=== PATIENT | male | born 1985 | race Two or more races ===

== ENCOUNTER 2020-07-25 11:39 | Emergency (ER) | payer OTHER ==
[~2020-07-25] VITALS: Ht 175.3 cm; Wt 90.7 kg
[2020-07-25] MEDS ORDERED: ATIVAN0.5 M1 (11:43)
[2020-07-25] MEDS ORDERED: CLOZARIL100 MG (11:44)
[2020-07-25] MEDS ORDERED: VISTARIL25 MG (11:45)
[2020-07-25] MEDS ORDERED: TRAZODONE HCL150 MG (11:45)
[2020-07-25] MEDS ORDERED: LEXAPRO20 MG (11:45)
== END 2020-07-25 14:51 | disposition home or self-care (01) ==
LOC: ER 11:39
DX: R42 Dizziness and giddiness (principal)